=== PATIENT | female | born 1950 | race Caucasian/White ===

== ENCOUNTER 2019-12-15 09:28 | Outpatient (CLI) | payer MEDICARE, SELFPAY ==
--- NOTE | ~2019-12-15 | US_ITS ---
EXAMINATION: US pelvic complete w TV DATE: 12/15/2019 10:28 INDICATION: Left lower quadrant pain. Comparison: Ultrasound dated 11/02/2015 TECHNIQUE: Multiple transabdominal and endovaginal sonographic images of the pelvis performed. FINDINGS: The uterus measures 5.6 x 2.9 x 4 cm. The endometrial complex measures 4 mm. The right ovary measures 1.8 x 0.8 x 2.5 cm and the left ovary measures 0.9 x 0.9 x 0.6 cm. There ar e small follicles in each ovary. There is no free fluid in the pelvis. There are no abnormal masses seen on either side. IMPRESSION: 1. Normal pelvic ultrasound. Reviewed, dictated and finalized at location A.
== END 2019-12-15 09:29 | disposition home or self-care (01) ==
LOC: ANHIMG 09:37
PROVIDERS: PCP Internal Medicine; Visit Provider Obstetrics & Gynecology
DX: R10.32 Left lower quadrant pain (principal)
CPT/HCPCS: 76830; 76856

== ENCOUNTER 2020-01-07 10:13 | Outpatient (CLI) | payer MEDICARE, SELFPAY ==
--- NOTE | ~2020-01-07 | MM_ITS ---
EXAMINATION: MM screening nic BI w robb HISTORY: Screening TECHNIQUE: Craniocaudal and mediolateral oblique 3-D tomosynthesis images were obtained and synthetic 2-D images were generated. CAD analysis was submitted and interpreted. COMPARISON: Comparison to multiple prior studies sequentially, with oldest reviewed study dated 11/2014. BREAST PARENCHYMAL COMPOSITION: The breasts are extremely dense, which lowers the sensitivity of mamm ography. FINDINGS: There is no evidence of suspicious mass, calcification, or architectural distortion to sugg est malignancy in either breast. There has been no suspicious interval change. IMPRESSION: 1. No mammographic evidence of malignancy. 2. Recommend routine screening mammography in one year. BI-RADS Category 1: Negative Reviewed, dictated and finalized at location A.
== END 2020-01-07 10:14 | disposition home or self-care (01) ==
LOC: ANHIMG 10:14
PROVIDERS: PCP Internal Medicine; Visit Provider Obstetrics & Gynecology
DX: Z12.31 Encounter for screening mammogram for malignant neoplasm of breast (principal)
CPT/HCPCS: 77063; 77067

== ENCOUNTER 2020-02-17 09:52 | Outpatient (CLI) | payer MEDICARE, SELFPAY ==
--- NOTE | ~2020-02-17 | DEXA_ITS ---
Bone Density Report Name: Laine Crow Age: 69 Sex: Female Ethnicity: White Date of : 1950 Indication: postmenopausal; height loss; asthma or emphysema; Referring Provider: MICK LITTLE Study: Bone densitometry was performed. Exam Date: February 17, 2020 Accession number: [id number] Bone Density: Region BMD T-score Z-score Classification AP Spine (L1, L2, L3) 1.056 0.3 2.3 Normal Femoral Neck (Left) 0.868 0.2 1.9 Normal Total Hip (Left) 1.057 0.9 2.4 Normal Total Hip Bilateral Avg 1.040 0.8 2.3 Normal Femoral Neck (Right) 0.812 -0.3 1.4 Normal Total Hip (Right) 1.022 0.7 2.1 Normal World Health Organization criteria for BMD impression classify patients as: Normal (T-score at or above -1.0), Osteopenia (T-score between -1.0 and -2.5), or Osteoporosis (T-score at or below -2.5). 10-year Fracture Risk: FRAX not reported because: All T-scores for Spine Total, Hip Total, Femoral Neck at or above -1.0 Previous Exams: Region Exam Age BMD T-score BMD Change BMD Change Date g/cm2 vs Baseline vs Previous AP Spine(L1, L2, L3) 02/17/2020 69 1.056 0.3 -0.064(-5.7%)# 0.022(2.1%) 11/02/2015 65 1.034 0.1 -0.086(-7.6%)# -0.041(-3.8%)# 05/01/2013 63 1.075 0.5 -0.045(-4.0%)# -0.023(-2.1%)# 03/30/2011 60 1.098 0.7 -0.022(-2.0%) 0.043(4.1%)* 03/14/2009 58 1.055 0.3 -0.065(-5.8%)* -0.065(-5.8%)* 11/06/2006 56 1.120 0.9 Total Hip(Left) 02/17/2020 69 1.057 0.9 0.048(4.7%)# 0.022(2.1%) 11/02/2015 65 1.035 0.8 0.026(2.5%)# 0.028(2.8%)# 05/01/2013 63 1.007 0.5 -0.002(-0.2%)# -0.016(-1.5%)# 03/30/2011 60 1.023 0.7 0.013(1.3%) 0.035(3.6%)* 03/14/2009 58 0.988 0.4 -0.022(-2.2%) -0.022(-2.2%) 11/06/2006 56 1.010 0.6 Total Hip(Right) 02/17/2020 69 1.022 0.7 0.017(1.7%)# 0.025(2.5%) 11/02/2015 65 0.997 0.5 -0.007(-0.7%)# -0.004(-0.4%)# 05/01/2013 63 1.001 0.5 -0.004(-0.4%)# 0.032(3.3%)# 03/30/2011 60 0.968 0.2 -0.036(-3.6%)* 0.016(1.7%) 03/14/2009 58 0.952 0.1 -0.052(-5.2%)* -0.052(-5.2%)* 11/06/2006 56 1.005 0.5 *Denotes significance at 95% confidence level, LSC for AP Spine = 0.022 g/cm2, LSC for Total Hip = 0.027 g/cm2 Clinical Information Provided by Patient: Has used the following medications: HRT (i.e. estrogen/hormone therapy), Vitamin D Has the following medical conditions: Asthma or Emphysema Patient maximum height was 66 Menopause Age: 57 Drinks caf
== END 2020-02-17 09:53 | disposition home or self-care (01) ==
PROVIDERS: PCP Internal Medicine; Visit Provider Obstetrics & Gynecology
DX: Z13.820 Encounter for screening for osteoporosis (principal); Z78.0 Asymptomatic menopausal state
CPT/HCPCS: 77080

== ENCOUNTER 2020-08-07 13:33 | Emergency (ER) | payer MEDICARE, SELFPAY ==
[2020-08-07] VITALS (7 sets, daily range): BP systolic 105–137; BP diastolic 58–82; PULSE 62–86; RESP 16–18; TEMP 36.3–37; O2SAT 95–98
--- NOTE | ~2020-08-07 | XR_ITS ---
EXAMINATION: XR chest 1V portable INDICATION: Weakness and cough, fever TECHNIQUE: Portable AP chest at 1415 hours COMPARISON: 02/08/2014 FINDINGS: There are patchy opacities throughout the lungs. No pleural effusion or pneumothorax is shell ntified. The cardiomediastinal silhouette is normal. IMPRESSION: 1. Patchy bilateral airspace opacities, likely pneumonia. Reviewed, dictated and finalized at location A. 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
--- NOTE | 2020-08-07 13:59 | ED.WEAKNESS ---
HPI - Weakness General Chief complaint: Weakness Stated complaint: dizzy, worsening weakness, covid + Time Seen by Provider: 08/07/20 13:45 Source: patient Mode of arrival: ambulatory Limitations: no limitations History of Present Illness HPI Narrative: Patient tested positive for COVID-19 ,7 days ago, exposed to somebody with COVID-19 infection 2 days prior to that. Patient complaining of general weakness, denies any chest pain, shortness of breath, fever or chills. Patient also denies any nausea, vomiting, diarrhea, constipation, urinary symptoms. Related Data Allergies Allergy/AdvReac Type Severity Reaction Status Date / Time cephalexin Allergy Severe RASH Verified 08/07/20 13:45 ciprofloxacin Allergy Severe JOINT PAIN Verified 08/07/20 13:45 Cephalosporins Allergy Mild Rash Verified 08/07/20 13:45 Quinolones Allergy Unknown DIFFICULTY Verified 08/07/20 13:45 BREATHING hydrocodone AdvReac Unknown NAUSEA Verified 08/07/20 13:45 OXYCODONE HCL Allergy Unknown ITCHING Uncoded 08/07/20 13:45 LOSARTAN POTASSIUM AdvReac Unknown SEVERE PLATT Uncoded 08/07/20 13:45 Review of Systems Review of Systems: Narrative: CONSTITUTIONAL: Denies fever, chills, or sweats. EYES: Denies visual changes, redness, or discharge. ENT: Denies rhinorrhea, congestion, sore throat, or otalgia. CARDIOVASCULAR: Denies chest pain, palpitations, or edema. RESPIRATORY: Denies cough or dyspnea. GASTROINTESTINAL: Denies abdominal pain, nausea, vomiting, or diarrhea. GENITOURINARY: Denies dysuria or hematuria. SKIN: Denies rash or itching. MUSCULOSKELETAL: Denies back pain, joint pain, or myalgia. NEUROLOGIC: Denies headache, numbness, or weakness. PSYCHIATRIC: Denies anxiety or depression. PMFSH Family History Family History Mother Family history of renal failure Father Acute myocardial infarction Other Cerebrovascular accident Diabetes mellitus Family history of cardiovascular disease Family history of kidney disease Hypertension Social History Social History Smoking status: Never smoker Alcohol intake: current Exam Narrative: Exam Narrative: General appearance: Well-developed, well-nourished Skin: Normal color Head: Normocephalic, nontraumatic Eyes: Clear conjunctiva ENT: Oropharynx normal, ears normal, nose normal Neck: Supple, nontender Chest and respiratory: Airway patent, no respiratory distress, no accessory muscle use Heart: Regular rate/rhythm Abdomen: Soft, nontender, no organomegaly, quiet bowel sounds Vascular: Normal peripheral pulses, normal capillary refill. 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 Labs, UA, chest x-ray ordered. Further plan to follow Differential Diagnosis Differential diagnosis: Likely anemia, hypothyroidism and dehydration Lab Data Result diagrams: 08/07/20 14:10 08/07/20 14:10 Labs: Lab Results
[2020-08-07 14:19] LABS: Basophils Percent Auto 0.2 % (0.2-1.2); Hematocrit 36.7 % (37.0-47.0); Immature Granulocyte Absolute 0.01 K/mm3 (0.00-0.031); Immature Granulocyte Percent A 0.2 % (0-0.5); Lymphocytes Absolute Auto 0.67 K/mm3 (0.9-3.2); Lymphocytes Percent Auto 14.4 % (18.3-44.2); Mean Corpuscular HGB Conc 35.4 g/dl (32-36); Mean Corpuscular Hemoglobin 31.6 pg (26-34); Mean Corpuscular Volume 89.1 fl (80-100); Monocytes Absolute Auto 0.1 K/mm3 (0.1-0.6); Monocytes Percent Auto 2.6 % (2.6-8.5); Neutrophils Absolute Auto 3.8 K/mm3 (1.3-6.7); Neutrophils Percent Auto 82.6 % (45.5-73.1); Platelet Count Result 237 k/mm3 (150-375); Red Blood Count 4.12 M/mm3 (4.2-5.4); Red Cell Distribution Width 12.6 % (11.5-14.5); White Blood Count 4.7 K/mm3 (4.5-10.0)
[2020-08-07 14:29] LABS: Add Urine Microscopic? YES; Appearance Urine Cloudy (Clear); Bacteria Urine Trace /hpf; Bilirubin Urine Negative (Negative); Blood Urine 1+ (Negative); Color Urine Yellow (Yellow); Glucose Urine UA Negative (Negative); Ketones Urine Trace mg/dL (Negative); Leukocyte Esterase Ur 3+ LEU/UL (Negative); Mucus Urine Rare /lpf; Nitrate Urine Positive (Negative); Protein Urine 1+ mg/dL (Negative); Squamous Epithelial Cell Urine Occasional /hpf (Few); Urobilinogen Urine Negative mg/dL (<2.0); WBC Urine >75 /hpf
[2020-08-07 14:34] LABS: Anion Gap 10 mmol/L (8-16); Blood Urea Nitrogen 17 mg/dL (7-17); Calcium 8.3 mg/dL (8.4-10.2); Carbon Dioxide 26 mmol/L (22-30); Chloride 91 mmol/L (98-107); Estimated CRCL calculation 39 ml/min; Estimated Glomerular Filt Rate 49; Glucose 112 mg/dL (65-105); Potassium 2.7 mmol/L (3.4-5.0); Sodium 127 mmol/L (137-145)
--- NOTE | 2020-08-07 14:57 | ECG_ITS ---
Measurements Intervals Holly Rate: 59 P: 32 ME: 231 QRS: 32 QRSD: 106 T: 41 QT: 453 QTc: 450 Interpretive Statements SINUS BRADYCARDIA WITH FIRST DEGREE AV BLOCK BASELINE WANDER- II, III, AVF, V4-V6 ABNORMAL ECG Electronically Signed On 08-07-2020 15:28:15 SPORT INTERN by Vinh Thomas D.O.
[2020-08-07] MEDS: POTASSIUM CHLORIDE 20 MEQ PACKET (FOR LIQUID) 40 MEQ PO (15:29)
[2020-08-07] MEDS: SODIUM CHLORIDE 0.9% IV 1,000 ML 999 ML IV CONT (15:29)
[2020-08-07] MEDS: NITROFURANTOIN MONOHYD MACROCR 100 MG CAP PO (16:32)
--- NOTE | 2020-08-07 19:45 | PC.NURSE ---
Patient updated she will be discharged after IV potassium is infused.
== END 2020-08-07 20:24 | disposition home or self-care (01) ==
LOC: ANHED 14:03
PROVIDERS: Emergency Provider Emergency Medicine; PCP Internal Medicine
DX: U07.1 COVID-19 (principal); J12.82 Pneumonia due to coronavirus disease 2019; E87.6 Hypokalemia; E87.1 Hypo-osmolality and hyponatremia; I44.0 Atrioventricular block, first degree; R00.1 Bradycardia, unspecified
CPT/HCPCS: 36415; 71045; 80048; 81001; 85025; 87077; 87086; 87088; 87186; 93005; 96365; 96366; 99284; A9270; J3480; J7030